=== PATIENT | female | born 1970 | race Caucasian/White ===

== ENCOUNTER → 2018-10-30 12:40 | Outpatient (CLI) | payer OTHER, SELFPAY ==
[2018-07-12 15:22] VITALS: BMI 19.5
[2018-10-30 14:17] LABS: Absolute Lymphocyte Count 1.95 X10^3/ul (0.83-4.51); Absolute Neutrophil Count 3.3 X10^3/uL (2.0-7.7); Basophil# 0.05 X10^3/uL; Basophil% 0.8 % (0-1); Eosinophil# 0.11 X10^3/uL; Eosinophils% 1.8 % (0-5); Hematocrit 42.2 % (37-47); Hemoglobin 13.8 g/dl (12.0-15.0); Lymphocyte # 1.95 X10^3/ul (4.0); Lymphocyte % 32.1 % (19-41); Mean Corp Hgb Conc 32.7 g/gl (32-36); Mean Corpuscular Hgb 33.3 pg (27.0-32.0); Mean Corpuscular Volume 101.7 fL (81-99); Mean Platelet Vol. 9.5 fl (6.2-12.0); Monocyte# 0.61 X10^3/uL; Neutrophil # 3.34 X10^3/uL (2.7-7.7); POSITIVE COUNT NO; POSITIVE DIFFERENTIAL NO; POSITIVE MORPHOLOGY NO; Platelet Count 314 K/mm3 (150-450); RBC Distribution Width CV 12.7 % (11.6-14.6); RBC Distribution Width SD 46.8 fl (35.1-43.9); Red Blood Count 4.15 M/mm3 (4.2-5.4); White Blood Count 6.1 K/mm3 (4.4-11.0)
[2018-10-30 14:39] LABS: Albumin, Serum 3.8 g/dL (3.2-5.0); BUN 7 mg/dL (7-18); BUN/Creat Ratio 12.5 RATIO (10-20); Creatinine, Serum 0.56 mg/dL (0.55-1.02); EST Glomerular Filtration Rate 123 mL/min (>60); Est Glom Filt Rate - Afr Amer 149 mL/min (>60); Glucose 80 mg/dL (74-106); Protein, Total 7.3 g/dL (6.4-8.2)
[2018-10-30 14:40] LABS: ALB/GLOB Ratio 1.1 RATIO (0.9-2.4); AST(SGOT) 20 U/L (15-37); Alanine Aminotransfer ALT/SGPT 24 U/L (13-56); Alkaline Phosphatase 58 U/L (45-117); Anion Gap 9 (5-15); Calcium,Total 8.8 mg/dL (8.5-10.1); Chloride 103 mmol/L (98-107); Globulin 3.5 g/dL (2.2-4.2); Potassium 3.9 mmol/L (3.5-5.1); Sodium Level 138 mmol/L (136-145); Thyroid Stim Hormone (TSH) 1.15 uIU/mL (0.358-3.74)
[2018-11-02 14:07] LABS: Beef 0.21 kU/L (Class 0/I); Corn <0.10 kU/L (Class 0); Egg, Whole <0.10 kU/L (Class 0); Milk (Cow) <0.10 kU/L (Class 0); Peanut <0.10 kU/L (Class 0); Pork <0.10 kU/L (Class 0); Soybean <0.10 kU/L (Class 0); Wheat <0.10 kU/L (Class 0)
[2018-11-04 11:15] LABS: Chocolate <0.10 kU/L (Class 0)
== END ==
PROVIDERS: Family Provider Family Medicine; PCP Family Medicine; Referring Provider Family Medicine; Visit Provider Family Medicine
DX: L23.9 Allergic contact dermatitis, unspecified cause (principal); H69.80 Other specified disorders of Eustachian tube, unspecified ear
CPT/HCPCS: 36415; 80053; 84443; 85025; 86003; 86005

== ENCOUNTER → 2019-02-11 14:50 | Outpatient (CLI) | payer OTHER, MEDICAID, SELFPAY ==
--- NOTE | 2019-02-11 15:00 | CT_ITS ---
STUDY: CT ANKLE WITHOUT CONTRAST LEFT LEFT REASON FOR EXAM: Female, 48 years old. Pain history of fracture This is likely the patient had a nondisplaced distal fibular fracture. RADIATION DOSAGE (If Supplied By Facility): CTDIvol = ( 6.13 ) mGy, DLP = ( 149.12 ) mGycm. Individualized dose optimization techniques were used for this CT.? TECHNIQUE: Thorax images of the left ankle were obtained from the distal tibia and fibula through the calcaneus. Sagittal coronal reformatted images are performed. COMPARISON: Left ankle x-ray July 17, 2017 FINDINGS: Since prior study there is a healed well-corticated appearance of the distal fibula compatible with a history of fracture. There is no visualized evidence of a new or acute fracture. There is no evidence of visualized significant soft tissue edema. The ankle mortise is intact. There is no visualized defect within the ankle mortise. There may be a trace plantar spur. Otherwise the calcaneus appears normal. The joint spaces appear relatively maintained. CT/Extremity Lower without Contra IMPRESSION: Healed fracture of the distal fibula. Small plantar spur. No visualized acute fracture. If there is persistent pain could consider follow-up MRI which may be more specific for subtle soft tissue injuries. Electronically Signed: Sharita Melendrez MD at 19:46 EDT Tel , Service support ,
== END ==
PROVIDERS: Family Provider Family Medicine; PCP Family Medicine; Referring Provider Podiatrist Foot & Ankle Surgery; Visit Provider Podiatrist Foot & Ankle Surgery
DX: M25.572 Pain in left ankle and joints of left foot (principal)
CPT/HCPCS: 73700

== ENCOUNTER → 2019-10-23 11:59 | Outpatient (CLI) | payer OTHER, SELFPAY ==
[2019-03-07 15:33] VITALS: BMI 19.5
[2019-10-23 14:07] LABS: Absolute Lymphocyte Count 1.96 X10^3/uL (0.83-4.51); Absolute Neutrophil Count 5.4 X10^3/uL (2.0-7.7); Basophil# 0.03 X10^3/uL; Basophil% 0.4 % (0-1); Eosinophil# 0.16 X10^3/uL; Eosinophils% 1.9 % (0-5); Hematocrit 38.1 % (37-47); Hemoglobin 12.6 g/dL (12.0-15.0); Lymphocyte # 1.96 X10^3/ul (4.0); Lymphocyte % 23.7 % (19-41); Mean Corp Hgb Conc 33.1 g/dL (32-36); Mean Corpuscular Hgb 33.2 pg (27.0-32.0); Mean Corpuscular Volume 100.3 fL (81-99); Mean Platelet Vol. 9.4 fl (6.2-12.0); Monocyte# 0.66 X10^3/uL; NRBC Flagged by Analyzer 0 % (0-5); Neutrophil # 5.44 X10^3/uL (2.7-7.7); Neutrophil % 65.8 % (47-70); Platelet Count 288 K/mm3 (150-450); RBC Distribution Width CV 12.6 % (11.6-14.6); RBC Distribution Width SD 46.2 fl (35.1-43.9); White Blood Count 8.3 K/mm3 (4.4-11.0)
[2019-10-23 14:22] LABS: ALB/GLOB Ratio 1.3 RATIO (0.9-2.4); AST(SGOT) 13 U/L (15-37); Alanine Aminotransfer ALT/SGPT 22 U/L (13-56); Albumin, Serum 3.8 g/dL (3.2-5.0); Alkaline Phosphatase 48 U/L (45-117); Anion Gap 6 (5-15); BUN 12 mg/dL (7-18); BUN/Creat Ratio 23.8 RATIO (10-20); CRP < 2.90 mg/L (0.0-3.0); Chloride 106 mmol/L (98-107); EST Glomerular Filtration Rate 138 mL/min (>60); Est Glom Filt Rate - Afr Amer 167 mL/min (>60); Glucose 79 mg/dL (74-106); Potassium 3.9 mmol/L (3.5-5.1); Protein, Total 6.8 g/dL (6.4-8.2); Sodium Level 137 mmol/L (136-145)
== END ==
PROVIDERS: PCP Family Medicine; Referring Provider Family Medicine; Visit Provider Family Medicine
DX: R10.31 Right lower quadrant pain (principal)
CPT/HCPCS: 36415; 80053; 85025; 86140

== ENCOUNTER → 2019-11-04 14:32 | Outpatient (CLI) | payer OTHER, SELFPAY ==
[2019-03-07 15:33] VITALS: BMI 19.5
[2019-11-04 18:04] LABS: CRP < 2.90 mg/L (0.0-3.0)
[2019-11-06 16:08] LABS: Endomysial Antibody IgA Negative (Negative)
[2019-11-07 12:02] LABS: Immunoglobulin A 149 mg/dL (87-352); t-Transglutaminase IgA <2 U/mL (0-3)
== END ==
PROVIDERS: PCP Family Medicine; Referring Provider Internal Medicine Gastroenterology; Visit Provider Internal Medicine Gastroenterology
DX: R10.9 Unspecified abdominal pain (principal)
CPT/HCPCS: 36415; 82784; 83516; 86140; 86255

== ENCOUNTER 2020-03-28 05:33 | Emergency (ER) | payer OTHER, SELFPAY ==
[2019-03-07 15:33] VITALS: BMI 19.5
[2020-03-28 05:33] VITALS: BP 119/66; PULSE 79; RESP 16; TEMP 36.3; O2SAT 96; BMI 23.8
--- NOTE | 2020-03-28 05:39 | RAD_ITS ---
HISTORY: FELL DOWN FLIGHT OF STAIRS YESTERDAY. PAIN ALL OVER LEFTHAND EXAMINATION/TECHNIQUE: XR Hand left hand 3 views COMPARISON: None FINDINGS: No fracture, dislocation, or bony abnormality. Joint spaces are preserved. Normal bony alignment. No suspicious soft tissue swelling. RAD/Hand Min 3 Views IMPRESSION: Negative for fracture or acute osseous abnormality. at 0657 Reported and signed by: Daren Broussard MD Electronically Signed: Daren Broussard, at 6:56 EDT Tel , Service support ,
--- NOTE | 2020-03-28 05:40 | ED.VIS.GEN ---
History of Present Illness Chief Complaint: Lower Extremity Injury Narrative: This patient is a 50-year-old female who presents with chief complaint of I am pretty sure I broke my leg. She spelled on the steps yesterday afternoon. She tripped on her shoe. She was walking on the steps and fell down several steps injuring her left knee left elbow and left hand. She did not hit her head or lose consciousness. No chest pain or abdominal pain. No back injury. She denies any medical history or daily medications. She was able to walk initially. Her pain is progressed since that time and she is now unable to bear weight. No paresthesias or weakness. Past Medical History - Allergies and Home Meds Allergies/Adverse Reactions: Allergies iodine Allergy (Verified 06/23/17 14:32) Rash latex Allergy (Verified 06/23/17 14:32) Rash Beef Containing Products Adverse Reaction (Verified 03/28/20 05:35) Hives seafood Allergy (Uncoded 07/12/18 15:25) Unknown Primary Care Physician: Donis Gomez MD [Primary Care Provider] - Past Medical History: None Surgical History: hysterectomy, - - left elbow surgery,falls in the past, 2 mvas in the past with back and head and elbow pain. Smoking Status: Current every day smoker - Family History Maternal Family History: Reports: - - reports health Paternal Family History: Reports: - - migraines. Review of Systems All systems negative except as indicated General: Denies: Fever Eyes: Denies: Visual changes - bilaterally ENT: Denies: Bilateral ear pain Cardiovascular: Denies: Chest pain Respiratory: Denies: Dyspnea Gastrointestinal: Denies: Abdominal pain Musculoskeletal: Reports: Back pain, Extremity Pain Skin: Denies: Rash Neurological: Denies: Headache Hematologic: Denies: Easy bruising Allergy: Denies: Uticaria Physical Exam Vital Signs/Narrative: Vital Signs Temp Pulse Resp BP Pulse Ox 03/28/20 05:33 97.4 F L 79 16 119/66 96 Inital Vital Signs reviewed: Yes General: Well nourished Head: Normocephalic Eyes: EOMI ENT: Moist mucous membranes Neck: Supple Cardiovascular: Regular rate Respiratory: No distress Abdomen: Soft, Nontender, Nondistended Back: Nontender Extremities: - - Patient has ecchymosis of the left elbow hand and knee she does have active full range of motion x4 extremities she has tenderness of the left elbow left hand at the base of the thumb along the thumb as well as diffusely of the left knee had not appreciate any effusion of the left knee extensor mechanism is intact she is neurovascularly intact distally with brisk capillary refill normal sensation and motor function Diagnostic/Tx/Re-eval Impressions Hand X-Ray 03/28/20 05:39 IMPRESSION: Negative for fracture or acute osseous abnormality. at 0657 Reported and signed by: Daren Broussard MD Electronically Signed: Daren Broussard, at 6:56 EDT Tel , Service support , Elbow X-Ray 03/28/20 05:58 IMPRESSION: Old healed distal humeral fracture with intact fixation hardware. No demonstrated acute fracture, dislocation, or destructive osseous lesion. Electronically Signed: Luis Enrique Virgen MD at 6:32 EDT , Service support , Knee X-Ray 03/28/20 05:58 IMPRESSION: Normal exam, left knee. at 0658 Reported and signed by: Daren Broussard MD Electronically Signed: Daren Broussard at 6:57 EDT Tel , Service support , 03/28/20 05:39 Hand Min 3 Views [RAD] Stat 03/28/20 05:58 Elbow min 3 Views [RAD] Stat Knee 4 or More Views [RAD] Stat - Medical Decision Making X-rays were obtained of the left elbow and knee. These are negative for acute fractures. Patient advised on supportive care including rest ice elevation. She was given an Edi wrap and crutches and was discharged home. ED Disposition - Plan for ED Patient: Disposition: Home or Assisted Living Diagnosis: Multiple contusions Instructions: Contusions (Bruises) Referrals: Donis Gomez MD [Primary Care Provider] -
--- NOTE | 2020-03-28 05:58 | RAD_ITS ---
HISTORY: FELL DOWN THE STAIRS, LEFT KNEE PAIN. EXAMINATION/TECHNIQUE: XR left knee 4 views COMPARISON: None FINDINGS: No fracture, dislocation, or bony abnormality. Joint spaces are preserved. Normal bony alignment. No joint effusion or significant soft tissue swelling identified. RAD/Knee 4 or More Views IMPRESSION: Normal exam, left knee. at 0658 Reported and signed by: Daren Broussard MD Electronically Signed: Daren Broussard, at 6:57 EDT Tel , Service support ,
--- NOTE | 2020-03-28 05:58 | RAD_ITS ---
STUDY: X-RAY - LEFT ELBOW REASON FOR EXAM: Female, 50 years old. FELL DOWN STAIRS YESTERDAY. PAIN ALL OVER ELBOW. HX OF SURGERY ON ELBOW IN 1998 PER PATIENT TECHNIQUE: 4 view(s) of the elbow. COMPARISON: None. FINDINGS: There has been previous ORIF of a distal humeral fracture with placement of a medial fixation plate and screws there is also metallic fixation pin within the distal humeral shaft. Hardware is intact with no evidence for loosening and the previous fracture is healed in anatomic alignment. Otherwise normal visualized humerus, radius and ulna. Normal radiocapitellar and ulnotrochlear articulations. The soft tissue structures are unremarkable. RAD/Elbow min 3 Views IMPRESSION: Old healed distal humeral fracture with intact fixation hardware. No demonstrated acute fracture, dislocation, or destructive osseous lesion. Electronically Signed: Luis Enrique Virgen MD at 6:32 EDT , Service support ,
== END 2020-03-28 07:30 | disposition home or self-care (01) ==
PROVIDERS: Emergency Provider Emergency Medicine; PCP Family Medicine
DX: S80.02XA Contusion of left knee, initial encounter (principal); S60.222A Contusion of left hand, initial encounter; S50.02XA Contusion of left elbow, initial encounter; W10.9XXA Fall (on) (from) unspecified stairs and steps, initial encounter; W18.09XA Striking against other object with subsequent fall, initial encounter; Y93.01 Activity, walking, marching and hiking; Y92.9 Unspecified place or not applicable; F17.200 Nicotine dependence, unspecified, uncomplicated
CPT/HCPCS: 73080; 73130; 73564; 99283

== ENCOUNTER 2020-08-16 07:24 | Emergency (ER) | payer MEDICAID, SELFPAY ==
[2020-08-16 07:25] VITALS: BP 124/7; PULSE 72; RESP 18; TEMP 36.1; O2SAT 97; BMI 21.5
--- NOTE | 2020-08-16 07:38 | CT_ITS ---
STUDY: CT BRAIN WITHOUT CONTRAST REASON FOR EXAM: Female, 50 years old. DIZZY, TRIPPED OVER HER DOG, RT SHOULDER PAIN RADIATION DOSAGE (If Supplied By Facility): CTDIvol = ( 44.99 ) mGy, DLP = ( 779.24 ) mGycm TECHNIQUE: Transaxial CT imaging of the brain was performed without administration of intravenous contrast material. Individualized dose optimization techniques were used for this CT. COMPARISON: Comparison is made with prior study 04/18/2016. FINDINGS: Normal soft tissue structures. Normal calvarium. Normal size ventricles and extra-axial spaces for the patient''s age. Normal white matter tracts of the cerebral hemispheres. Normal basal ganglia and thalami. Normal brainstem. Normal cerebellum. There is no intracranial hemorrhage. There are no findings of an acute ischemic infarction. Normal visualized paranasal sinuses. CT/Brain/Head without Contrast IMPRESSION: Normal unenhanced CT scan of the brain. Electronically Signed: Ulisses Mejia, at 9:01 EST , Service support ,
--- NOTE | 2020-08-16 07:38 | EKG12_ITS ---
Test Reason : DYSRHYTHMIA Blood Pressure : / mmHG Vent. Rate : 070 BPM Atrial Rate : 070 BPM P-R Int : 124 ms QRS Dur : 072 ms QT Int : 418 ms P-R-T Axes : 042 062 030 degrees QTc Int : 451 ms Normal sinus rhythm Nonspecific ST abnormality Abnormal ECG Confirmed by BRETT CADE, FABIÁN ([id number]), copy editor KOJO MATA ([id number]) on 08/17/2020 9:23:45 AM Referred By: EVY Confirmed By:FABIÁN WEST MD
--- NOTE | 2020-08-16 07:43 | ED.VIS.GEN ---
History of Present Illness Chief Complaint: Upper Extremity Injury Informant: Patient Narrative: 50-year-old female presenting with dizziness and right shoulder pain. Patient states she is trying to step over a baby gate that she uses to keep her dogs out of certain areas and tripped over the gate catching her shoe and falling on her right shoulder. She states she laid on the ground for a while. As she walked into the ER she was dizzy and had an unstable gait. She appears to be mentating clearly once put into the bed. She admits to drinking a couple of beers but states she has not drunk. She says she has extreme pain in her right shoulder and nausea from the pain. She denies fever, chills, cough. She denies chest pain or shortness of breath. She describes her dizziness as vertiginous in nature. She is unclear if she hit her head or not. - Past Medical History (1) Migraines Status: Chronic (2) Alcohol abuse Status: Chronic (3) TIA (transient ischemic attack) Status: Chronic Past Medical History - Allergies and Home Meds Allergies/Adverse Reactions: Allergies iodine Allergy (Verified 08/16/20 07:25) Rash latex Allergy (Verified 08/16/20 07:25) Rash Beef Containing Products Adverse Reaction (Verified 08/16/20 07:25) Hives seafood Allergy (Uncoded 08/16/20 07:25) Unknown Primary Care Physician: Donis Gomez MD [Primary Care Provider] - Prior records reviewed: Yes Past Medical History: - - Reviewed in problem list Surgical History: hysterectomy, - Lives: With Family Smoking Status: Current every day smoker Alcohol: Heavy Drugs: None - Family History Maternal Family History: Reports: - - reports health Paternal Family History: Reports: - - migraines. Review of Systems General: Denies: Chills, Fever, Sweats Eyes: Denies: Visual changes - bilaterally, Diplopia ENT: Denies: Rhinorrhea, Sore throat Cardiovascular: Denies: Chest pain, Palpitations Respiratory: Denies: Dyspnea, Cough, Dyspnea on exertion Gastrointestinal: Reports: Nausea. Denies: Abdominal pain, Vomiting Genitourinary: Denies: Dysuria, Hematuria Musculoskeletal: Reports: - - Right shoulder pain Skin: Denies: Rash, Abscess Neurological: Reports: - - Dizziness Psych: Denies: Suicidal thoughts, Suicidal ideations Physical Exam Vital Signs/Narrative: Vital Signs Temp Pulse Resp BP Pulse Ox 08/16/20 07:25 97 F L 72 18 124/7 H 97 Inital Vital Signs reviewed: Yes General: Unkempt, No Acute Distress Head: Normocephalic, Atraumatic Eyes: Perrl, EOMI. Negative for: Pale conjunctiva, Scleral icterus ENT: Moist mucous membranes. Negative for: No rhinorrhea, TM's clear Cardiovascular: Regular rate, Regular rhythm Respiratory: No distress, CTA bilaterally Abdomen: Soft, Nontender, Nondistended Back: Nontender, Normal Inspection Extremities: - - Tenderness to palpation over right shoulder at the proximal humerus. No obvious deformity. No ecchymosis. Limited range of motion secondary to pain. Right clavicle is nontender. Skin: Negative for: Normal color, No rash Neurological: Alert, Oriented x3, Cranial nerves II-XII grossly intact Psychological: Normal affect, Normal Mood Diagnostic/Tx/Re-eval Clinical Impression(s) from Imaging Studies Brain CT 08/16/20 07:38 IMPRESSION: Normal unenhanced CT scan of the brain. Electronically Signed: Ulisses Mejia, at 9:01 EST , Service support , Cervical Spine CT 08/16/20 07:49 IMPRESSION: No acute abnormality is seen. Electronically Signed: Ulisses Mejia, at 8:59 EST , Service support , Chest X-Ray 08/16/20 08:30 IMPRESSION: Hyperinflation. The lungs are clear. Nondisplaced fracture through the surgical neck of the proximal right humerus. Electronically Signed: Ulisses Mejia, at 8:46 EST , Service support , Shoulder X-Ray 08/16/20 08:30 IMPRESSION: Nondisplaced fracture through the surgical neck of the proximal right humerus with extension to the greater tuberosity. Widening of the right acromioclavicular joint with findings suggestive of a nondisplaced fracture of the distal right clavicle. Electronically Signed: Ulisses Mejia, at 8:51 EST , Service support , Laboratory Data 08/16/20 08/16/20 08/16/20 07:50 07:50 08:10 WBC 9.6 RBC 4.05 L Hgb 13.7 Hct 40.6 MCV 100.2 H MCH 33.8 H MCHC 33.7 RDW Std Deviation 46.7 H RDW Coeff of Antonia 12.5 Plt Count 310 MPV 8.8 Immature Gran % (Auto) 0.500 Neut % (Auto) 73.8 H Lymph % (Auto) 19.4 [place] % (Auto) 5.5 Eos % (Auto) 0.4 Baso % (Auto) 0.4 Absolute Neuts (auto) 7.1 Absolute Lymphs (auto) 1.87 Nucleated RBC % 0 Sodium Potassium Chloride Carbon Dioxide Anion Gap BUN Creatinine Estim Creat Clear Calc Est GFR (MDRD) Af Amer Est GFR (MDRD) Non-Af BUN/Creatinine Ratio Glucose Calcium Magnesium Total Bilirubin AST ALT Alkaline Phosphatase Troponin I Total Protein Albumin Globulin Albumin/Globulin Ratio Urine Color Yellow Urine Clarity Sl. Cloudy Urine pH 5.0 Ur Specific [place] 1.015 Urine Protein Negative Urine Glucose (UA) Normal Urine Ketones 5 H Urine Occult Blood Negative Urine Nitrite Negative Urine Bilirubin Negative Urine Urobilinogen Normal Ur Leukocyte Esterase Negative Urine RBC 0 SEEN Urine WBC 0 SEEN Ur Squamous Epith Cells 5-10 SEEN Urine Bacteria 0 SEEN Urine Mucus 1+ Urine Opiates Screen NEGATIVE Urine Methadone Screen NEGATIVE Ur Barbiturates Screen NEGATIVE Ur Phencyclidine Scrn NEGATIVE Ur Amphetamines Screen NEGATIVE U Methamphetamin-MDMA NEGATIVE U Benzodiazepines Scrn NEGATIVE Urine Cocaine Screen NEGATIVE U Cannabinoids Screen POSITIVE H Ur Drug Screen Comment Ethyl Alcohol 08/16/20 08/16/20 08:10 08:10 WBC RBC Hgb Hct MCV MCH MCHC RDW Std Deviation RDW Coeff of Antonia Plt Count MPV Immature Gran % (Auto) Neut % (Auto) Lymph % (Auto) [place] % (Auto) Eos % (Auto) Baso % (Auto) Absolute Neuts (auto) Absolute Lymphs (auto) Nucleated RBC % Sodium 140 Potassium 3.7 Chloride 110 H Carbon Dioxide 21.0 Anion Gap 9 BUN 3 L Creatinine 0.60 Estim Creat Clear Calc 97.94 Est GFR (MDRD) Af Amer 136 Est GFR (MDRD) Non-Af 113 BUN/Creatinine Ratio 5.0 L Glucose 102 Calcium 8.8 Magnesium 2.0 Total Bilirubin 0.30 AST 53 H ALT 50 Alkaline Phosphatase 74 Troponin I < 0.015 Total Protein 7.8 Albumin 4.1 Globulin 3.7 Albumin/Globulin Ratio 1.1 Urine Color Urine Clarity Urine pH Ur Specific [place] Urine Protein Urine Glucose (UA) Urine Ketones Urine Occult Blood Urine Nitrite Urine Bilirubin Urine Urobilinogen Ur Leukocyte Esterase Urine RBC Urine WBC Ur Squamous Epith Cells Urine Bacteria Urine Mucus Urine Opiates Screen Urine Methadone Screen Ur Barbiturates Screen Ur Phencyclidine Scrn Ur Amphetamines Screen U Methamphetamin-MDMA U Benzodiazepines Scrn Urine Cocaine Screen U Cannabinoids Screen Ur Drug Screen Comment Ethyl Alcohol 237.0 - Rhythm Strip Rhythm Strip: Sinus Rhythm Rate: 70 - EKG Initial EKG Interpretation: Sinus Rhythm, Non-Specific ST Changes - Medical Decision Making Patient presents with dizziness after having a fall at home and hurting her right shoulder. She was unclear as to whether she hit her head but she stated she laid on the ground for a little while. She is having dizziness which she describes as vertiginous in nature. She admits to only 2 beers but her alcohol was 237. Urinalysis positive for THC. The rest of her lab work was unremarkable. Urinalysis negative. Patient had CT brain and cervical spine which were both negative. Chest x-ray was negative. Right shoulder x-ray shows a nondisplaced proximal humerus fracture. Etiology she did have concern for still clavicular fracture on the right however when I palpate her clavicle she states that it does not hurt. She states she is a patient at [facility] and she will follow up there. I did discuss with her about drinking alcohol. She stated to me that she was not typically an everyday drinker but over the last couple of weeks it has been harder. She states her mother just moved then and has brain cancer. I did discuss with her that I cannot give her pain medication if she is going to be drinking and she says that she can abstain. Patient is placed in a sling. She will call for a sober ride. Currently she is alert and oriented x3 and her dizziness has resolved. Impression: 1. EtOH intoxication 2. Fall 3. Right proximal humerus fracture 4. Dizziness ED Disposition - Plan for ED Patient: Disposition: Home or Assisted Living Instructions: ED INTOXICATION Alcohol, Preventing Falls in the Home, ED Fracture Upper Extremity Prescriptions: Hydrocodone/Acetaminophen [[place] 5-325 Tablet] 1 ea PO Q6H PRN PRN 3 Days #12 tab PRN Reason: pain Prescription Printed Referrals: Donis Gomez MD [Primary Care Provider] -
--- NOTE | 2020-08-16 07:49 | CT_ITS ---
STUDY: CT CERVICAL SPINE WITHOUT CONTRAST REASON FOR EXAM: Female, 50 years old. DIZZY, TRIPPED OVER HER DOG, RT SHOULDER PAIN RADIATION DOSAGE (If Supplied By Facility): CTDIvol = ( 18.98 ) mGy, DLP = ( 351.95 ) mGycm TECHNIQUE: High resolution transaxial imaging was performed without contrast material. Sagittal and coronal images were reconstructed. Individualized dose optimization techniques were used for this CT. COMPARISON: None FINDINGS: Normal craniovertebral junction. Normal anterior atlantoaxial articulation. Normal odontoid process. Normal cervical lordosis. Normal vertebral bodies and posterior osseous elements. C2-3: Normal endplates. Normal disc height and morphology. Normal central canal and intervertebral neuroforamina. C3-4: Normal endplates. Normal disc height and morphology. Normal central canal and intervertebral neuroforamina. C4-5: Normal endplates. Normal disc height and morphology. Normal central canal and intervertebral neuroforamina. C5-6: Normal endplates. Normal disc height and morphology. Normal central canal and intervertebral neuroforamina. C6-7: Normal endplates. Normal disc height and morphology. Normal central canal and intervertebral neuroforamina. C7-T1: Normal endplates. Normal disc height and morphology. Normal central canal and intervertebral neuroforamina. Increased markings at the lung apices with bullous changes suggestive of COPD. CT/Spine Cervical without Contras IMPRESSION: No acute abnormality is seen. Electronically Signed: Uilsses Mejia, at 8:59 EST , Service support ,
[2020-08-16 07:56] LABS: Bacteria 0 SEEN /hpf (None Seen); Red Blood Cells-Urine 0 SEEN /hpf (0-5); White Blood Cells 0 SEEN /hpf (0-5)
[2020-08-16 08:02] LABS: Color, Urine Yellow (Yellow); Glucose, Dipstick Normal (Normal); Ketone-Dipstick 5 mg/dl (Negative); Leukocyte Esterase-Dipstick Negative /ul (Negative); Nitrite-Dipstick Negative (Negative); Occult Blood-Urine Negative /ul (Negative); Protein-Dipstick Negative (Negative); Specific Gravity, Urine 1.015 (1.002-1.030); Urine Bilirubin Dipstick Negative (Negative); Urine Clarity Sl. Cloudy (Clear); Urine Urobilinogen Normal (Normal)
[2020-08-16] MEDS: Morphine 2 MG/ML Syringe IV ×2 (08:06→09:24)
[2020-08-16] MEDS: proMETHazine 25 MG/ML Syringe 6.25 MG IV (08:06)
[2020-08-16 08:08] LABS: Mucous, Urine 1+ /hpf (<or=2+); Squamous Epithelial Cells - UA 5-10 SEEN /hpf (5-10)
[2020-08-16 08:13] LABS: Amphetamine Urine VISTA NEGATIVE (<1000 ng/mL); Barbiturate Urine VISTA NEGATIVE (< 200 ng/mL); Benzodiazepine Urine VISTA NEGATIVE (< 200 ng/mL); Cocaine Urine VISTA NEGATIVE (< 300 ng/mL); Ecstacy Urine VISTA NEGATIVE (< 500 ng/mL); Methadone Urine VISTA NEGATIVE (< 300 ng/mL); PCP Urine VISTA NEGATIVE (< 25 ng/mL); THC Urine VISTA POSITIVE (< 50 ng/mL); Vista UDS pH Range 5
[2020-08-16 08:17] LABS: Absolute Lymphocyte Count 1.87 X10^3/uL (0.83-4.51); Absolute Neutrophil Count 7.1 X10^3/uL (2.0-7.7); Basophil# 0.04 X10^3/uL; Basophil% 0.4 % (0-1); Eosinophil# 0.04 X10^3/uL; Eosinophils% 0.4 % (0-5); Hematocrit 40.6 % (37-47); Hemoglobin 13.7 g/dL (12.0-15.0); Lymphocyte # 1.87 X10^3/ul (4.0); Lymphocyte % 19.4 % (19-41); Mean Corp Hgb Conc 33.7 g/dL (32-36); Mean Corpuscular Hgb 33.8 pg (27.0-32.0); Mean Corpuscular Volume 100.2 fL (81-99); Mean Platelet Vol. 8.8 fl (6.2-12.0); Monocyte# 0.53 X10^3/uL; Monocyte% 5.5 % (0-10); NRBC Flagged by Analyzer 0 % (0-5); Neutrophil # 7.11 X10^3/uL (2.7-7.7); Neutrophil % 73.8 % (47-70); Platelet Count 310 K/mm3 (150-450); RBC Distribution Width CV 12.5 % (11.6-14.6); RBC Distribution Width SD 46.7 fl (35.1-43.9); Red Blood Count 4.05 M/mm3 (4.2-5.4); White Blood Count 9.6 K/mm3 (4.4-11.0)
--- NOTE | 2020-08-16 08:30 | RAD_ITS ---
STUDY: X-RAY - RIGHT SHOULDER REASON FOR EXAM: Female, 50 years old. FALL, LANDED ON RIGHT SHOULDER, PAIN TECHNIQUE: 2 view(s) of the shoulder. COMPARISON: None. FINDINGS: Normal glenohumeral articulation. There is minimal widening of the AC joint suggesting a Type I acromioclavicular joint separation. Normal acromion. Nondisplaced fracture through the surgical neck of the proximal right humerus with extension to the greater tuberosity. Irregularity of the distal portion of the right clavicle suggestive of possible fracture. The soft tissue structures are unremarkable. Normal visualized pulmonary apex. RAD/Shoulder min 2 Views IMPRESSION: Nondisplaced fracture through the surgical neck of the proximal right humerus with extension to the greater tuberosity. Widening of the right acromioclavicular joint with findings suggestive of a nondisplaced fracture of the distal right clavicle. Electronically Signed: Ulisses Mejia, at 8:51 EST , Service support ,
--- NOTE | 2020-08-16 08:30 | RAD_ITS ---
STUDY: X-RAY CHEST REASON FOR EXAM: Female, 50 years old. FALL, LANDED ON RIGHT SHOULDER, PAIN TECHNIQUE: Single PA view of the chest. COMPARISON: None. FINDINGS: Hyperinflation. The lungs are clear. There is no demonstrated pleural abnormality. Normal size heart. Normal mediastinum and [place]. Normal visualized pulmonary arteries. Normal visualized aortic arch and descending thoracic aorta. There are degenerative changes of the visualized thoracic spine. Nondisplaced fracture through the surgical neck of the proximal right humerus. There is no demonstrated abnormality of the visualized soft tissue structures of the upper abdomen. RAD/Chest 1 View (Portable) IMPRESSION: Hyperinflation. The lungs are clear. Nondisplaced fracture through the surgical neck of the proximal right humerus. Electronically Signed: Ulisses Mejia, at 8:46 EST , Service support ,
[2020-08-16 09:07] VITALS: BP 122/72; PULSE 64; RESP 16; O2SAT 96
[2020-08-16 09:10] LABS: ALB/GLOB Ratio 1.1 RATIO (0.9-2.4); AST(SGOT) 53 U/L (15-37); Alanine Aminotransfer ALT/SGPT 50 U/L (13-56); Albumin, Serum 4.1 g/dL (3.2-5.0); Alkaline Phosphatase 74 U/L (45-117); Anion Gap 9 (5-15); BUN 3 mg/dL (7-18); Calcium,Total 8.8 mg/dL (8.5-10.1); Chloride 110 mmol/L (98-107); EST Glomerular Filtration Rate 113 mL/min (>60); Est Glom Filt Rate - Afr Amer 136 mL/min (>60); Estimated Creatinine Clearance 97.94 ml/min; Globulin 3.7 g/dL (2.2-4.2); Glucose 102 mg/dL (74-106); Potassium 3.7 mmol/L (3.5-5.1); Protein, Total 7.8 g/dL (6.4-8.2); Sodium Level 140 mmol/L (136-145)
[2020-08-16 09:56] VITALS: BP 122/74; PULSE 64; RESP 18; O2SAT 97
== END 2020-08-16 09:59 | disposition home or self-care (01) ==
PROVIDERS: Emergency Provider Student in an Organized Health Care Education/Training Program; PCP Family Medicine
DX: S42.214A Unspecified nondisplaced fracture of surgical neck of right humerus, initial encounter for closed fracture (principal); W01.0XXA Fall on same level from slipping, tripping and stumbling without subsequent striking against object, initial encounter; Y93.89 Activity, other specified; Y92.9 Unspecified place or not applicable; Y99.9 Unspecified external cause status; F10.129 Alcohol abuse with intoxication, unspecified; Y90.7 Blood alcohol level of 200-239 mg/100 ml; F17.200 Nicotine dependence, unspecified, uncomplicated; R42 Dizziness and giddiness; Z86.73 Personal history of transient ischemic attack (TIA), and cerebral infarction without residual deficits
CPT/HCPCS: 70450; 71045; 72125; 73030; 80053; 80307; 80320; 81001; 83735; 84484; 85025; 90471; 93005; 96361; 96374; 96375; 96376; 99285; J7030; A4216; G0480

== ENCOUNTER → 2021-04-20 | Outpatient (CLI) | payer MEDICAID, SELFPAY | END | disposition home or self-care (01) | PROVIDERS: PCP Family Medicine; Visit Provider Family Medicine | DX: R05 Cough (principal) | CPT/HCPCS: 87633; 87635; U0005; U0003 ==

== ENCOUNTER → 2021-06-07 | Outpatient (CLI) | payer MEDICAID, SELFPAY ==
[2021-06-07 15:54] LABS: Chlamydia Trachomatis by PCR Negative (Negative); Neisserai gonorrhoeae by PCR Negative (Negative); Probe Check PASS; Sample Adequacy Control PASS; Specimen Processing Control PASS
== END | disposition home or self-care (01) ==
LOC: LABSPEC 10:49
PROVIDERS: PCP Family Medicine; Referring Provider Family Medicine; Visit Provider Registered Nurse
DX: N39.0 Urinary tract infection, site not specified (principal)
CPT/HCPCS: 87086; 87088; 87186; 87491; 87591

== ENCOUNTER 2021-10-04 16:09 | Outpatient (CLI) | payer MEDICAID, SELFPAY | END 2021-10-04 23:59 | disposition short-term general hospital (02) | PROVIDERS: PCP Family Medicine; Referring Provider Family Medicine; Visit Provider Family Medicine | DX: Z20.822 Contact with and (suspected) exposure to COVID-19 (principal) | CPT/HCPCS: 87635; U0003; U0005 ==

== ENCOUNTER → 2022-08-17 | Outpatient (CLI) | payer MEDICAID, SELFPAY | END | disposition home or self-care (01) | LOC: LABSPEC 15:25 | PROVIDERS: PCP Family Medicine; Visit Provider Family Medicine | DX: J02.9 Acute pharyngitis, unspecified (principal) | CPT/HCPCS: 87070 ==

== ENCOUNTER → 2022-11-10 | Outpatient (CLI) | payer OTHER, MEDICAID, SELFPAY ==
--- NOTE | 2022-11-10 13:44 | MRI_ITS ---
STUDY: MRI BRAIN WITH AND WITHOUT CONTRAST REASON FOR EXAM: Female, 52 years old. Worsened migraine headaches TECHNIQUE: Standardized multiplanar fat and water weighted pulse sequences were obtained. IV 10ml dotarem was administered for the contrast portion of the examination. COMPARISON: MRI of brain April 19, 2016 FINDINGS: Normal size of the ventricles and extra-axial spaces for the patient''s age. Small scattered bilateral nonspecific periventricular white matter lesions without mass effect or restricted diffusion.. Normal bilateral basal ganglia. Normal thalami. There is no extra-axial fluid accumulation. Normal flow voids within the major intracranial circulation suggesting patency by spin echo criteria. Normal venous enhancement. There is no enhancing intra-axial or extra-axial abnormality. Normal sella turcica, pituitary gland, infundibular stalk, optic chiasm and hypothalamus. Normal tectal plate and pineal gland. Normal midbrain, lexii and medulla. Chronic ischemic changes within the cerebellar hemispheres bilaterally. Normal basal cisterns. Normal bilateral temporal bones. Normal bilateral internal auditory canals. No demonstrated orbital abnormality, within the constraints of a routine brain study. Normal visualized paranasal sinuses. Normal calvarium and skull base. Normal visualized soft tissue structures. Normal visualized upper cervical spine. There are a few more white matter lesions noted on current study when compared with previous exam. No other significant interval change MRI/Brain W/WO Contrast IMPRESSION: Persistent and very slightly increasing periventricular white matter changes most likely small vessel ischemic change in patient of this age without evidence for acute infarct. However demyelinating disease not entirely excluded and these findings are also seen in patients with old posttraumatic changes, Lyme''s disease or chronic migraines. Bilateral chronic ischemic changes in the cerebellar hemispheres No enhancing lesions following contrast demonstration Electronically Signed: Olvin Lott MD at 16:07 EST ,
[2022-11-10 13:47] LABS: Hematocrit 38.1 % (37-47); Hemoglobin 12.5 g/dL (12.0-15.0); Mean Corp Hgb Conc 32.8 g/dL (32-36); Mean Corpuscular Hgb 33.2 pg (27.0-32.0); Mean Corpuscular Volume 101.1 fL (81-99); Mean Platelet Vol. 8.9 fl (6.2-12.0); Platelet Count 264 K/mm3 (150-450); RBC Distribution Width CV 12.5 % (11.6-14.6); RBC Distribution Width SD 46.5 fl (35.1-43.9); Red Blood Count 3.77 M/mm3 (4.2-5.4); White Blood Count 5.6 K/mm3 (4.4-11.0)
[2022-11-10 14:19] LABS: ALB/GLOB Ratio 1.1 RATIO (0.9-2.4); AST(SGOT) 18 U/L (15-37); Alanine Aminotransfer ALT/SGPT 23 U/L (13-56); Albumin, Serum 3.8 g/dL (3.2-5.0); Alkaline Phosphatase 49 U/L (45-117); Anion Gap 5 (5-15); BUN 8 mg/dL (7-18); Calcium,Total 9.1 mg/dL (8.5-10.1); Chloride 108 mmol/L (98-107); EST Glomerular Filtration Rate 80 mL/min (>60); Est Glom Filt Rate - Afr Amer 97 mL/min (>60); Globulin 3.5 g/dL (2.2-4.2); Glucose 95 mg/dL (74-106); Potassium 3.6 mmol/L (3.5-5.1); Protein, Total 7.3 g/dL (6.4-8.2); Sodium Level 139 mmol/L (136-145)
== END | disposition home or self-care (01) ==
LOC: MRI 13:33
PROVIDERS: PCP Family Medicine; Referring Provider Psychiatry & Neurology Neurology; Visit Provider Psychiatry & Neurology Neurology
DX: G43.109 Migraine with aura, not intractable, without status migrainosus (principal)
CPT/HCPCS: 36415; 70553; 80053; 85027; A9575

== ENCOUNTER 2022-11-21 17:29 | Emergency (ER) | payer OTHER, MEDICAID, SELFPAY ==
[2022-11-21 17:30] VITALS: BP 132/79; PULSE 86; RESP 16; TEMP 35.8; O2SAT 98; BMI 20.6
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
[2022-11-21] MEDS: 0.9% Normal Saline 1,000 ML 150 ML IV (18:16)
[2022-11-21] MEDS: LORazepam 2 MG/ML Syringe 1 MG IV (18:17)
[2022-11-21] MEDS: Haloperidol Lactate 5 MG/ML Vial IM (18:18)
[2022-11-21 18:29] LABS: Absolute Lymphocyte Count 1.76 X10^3/uL (0.83-4.51); Absolute Neutrophil Count 5.5 X10^3/uL (2.0-7.7); Basophil# 0.05 X10^3/uL; Basophil% 0.6 % (0-1); Eosinophil# 0.04 X10^3/uL; Eosinophils% 0.5 % (0-5); Hematocrit 42.4 % (37-47); Hemoglobin 14.2 g/dL (12.0-15.0); Lymphocyte # 1.76 X10^3/ul (0.83-4.51); Lymphocyte % 22.8 % (19-41); Mean Corp Hgb Conc 33.5 g/dL (32-36); Mean Corpuscular Hgb 33.3 pg (27.0-32.0); Mean Corpuscular Volume 99.5 fL (81-99); Mean Platelet Vol. 8.8 fl (6.2-12.0); Monocyte# 0.34 X10^3/uL; Monocyte% 4.4 % (0-10); NRBC Flagged by Analyzer 0 % (0-5); Neutrophil # 5.49 X10^3/uL (2.7-7.7); Neutrophil % 71.2 % (47-70); Platelet Count 370 K/mm3 (150-450); RBC Distribution Width CV 12.4 % (11.6-14.6); RBC Distribution Width SD 45.3 fl (35.1-43.9); Red Blood Count 4.26 M/mm3 (4.2-5.4); White Blood Count 7.7 K/mm3 (4.4-11.0)
[2022-11-21 18:33] VITALS: BP 100/60; PULSE 81; RESP 16; O2SAT 97
[2022-11-21 18:43] LABS: Anion Gap 10 (5-15); BUN 7 mg/dL (7-18); BUN/Creat Ratio 11.3 RATIO (10-20); Calcium,Total 8.8 mg/dL (8.5-10.1); Chloride 109 mmol/L (98-107); Creatinine, Serum 0.62 mg/dL (0.55-1.02); EST Glomerular Filtration Rate 108 mL/min (>60); Est Glom Filt Rate - Afr Amer 130 mL/min (>60); Estimated Creatinine Clearance 101.17 ml/min; Glucose 101 mg/dL (74-106); Potassium 3.6 mmol/L (3.5-5.1); Sodium Level 141 mmol/L (136-145)
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
[2022-11-21 19:01] LABS: Bacteria 0 SEEN /hpf (None Seen); Mucous, Urine 0 SEEN /hpf (<or=2+); Red Blood Cells-Urine 0 SEEN /hpf (0-5); White Blood Cells 0 SEEN /hpf (0-5)
[2022-11-21 19:04] LABS: Color, Urine Yellow (Yellow); Glucose, Dipstick Normal (Normal); Ketone-Dipstick Negative (Negative); Leukocyte Esterase-Dipstick 25 /ul (Negative); Nitrite-Dipstick Negative (Negative); Occult Blood-Urine 250 /ul (Negative); Protein-Dipstick 15 mg/dl (Negative); Urine Bilirubin Dipstick Negative (Negative); Urine Clarity Clear (Clear); Urine Urobilinogen Normal (Normal)
[2022-11-21 19:10] LABS: Squamous Epithelial Cells - UA 0-5 SEEN /hpf (5-10)
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
[2022-11-21 19:59] LABS: Amphetamine Urine VISTA NEGATIVE (<1000 ng/mL); Barbiturate Urine VISTA NEGATIVE (< 200 ng/mL); Benzodiazepine Urine VISTA NEGATIVE (< 200 ng/mL); Cocaine Urine VISTA NEGATIVE (< 300 ng/mL); Ecstacy Urine VISTA NEGATIVE (< 500 ng/mL); Methadone Urine VISTA NEGATIVE (< 300 ng/mL); PCP Urine VISTA NEGATIVE (< 25 ng/mL); THC Urine VISTA POSITIVE (< 50 ng/mL); Vista UDS pH Range 6
--- NOTE | 2022-11-21 20:26 | ED.RN ---
mother arrives at bedside. Dr Sharp and dr Ma speaking with mother.
[2022-11-21 21:03] VITALS: BP 94/61; PULSE 82; RESP 16; O2SAT 100
[2022-11-21 23:16] VITALS: RESP 16
[2022-11-22 03:28] VITALS: PULSE 74; RESP 15; O2SAT 99
== END 2022-11-22 03:29 | disposition home or self-care (01) ==
PROVIDERS: Emergency Medicine; Emergency Provider Emergency Medicine; PCP Family Medicine; Visit Provider Emergency Medicine
DX: F10.129 Alcohol abuse with intoxication, unspecified (principal); S31.41XA Laceration without foreign body of vagina and vulva, initial encounter; S09.90XA Unspecified injury of head, initial encounter; F12.90 Cannabis use, unspecified, uncomplicated; F17.210 Nicotine dependence, cigarettes, uncomplicated; Y04.8XXA Assault by other bodily force, initial encounter
CPT/HCPCS: 70450; 80048; 80307; 81001; 82077; 85025; 96361; 96372; 96374; 99285; J7030; A4216

== ENCOUNTER 2023-01-05 23:27 | Emergency (ER) | payer OTHER, MEDICAID, SELFPAY ==
[2023-01-05 23:28] VITALS: BP 113/89; PULSE 85; RESP 20; TEMP 36.6; O2SAT 100; BMI 20.6
--- NOTE | 2023-01-05 23:48 | CT_ITS ---
INDICATION: head injury EXAMINATION: CT Head or Brain W/O Contrast Injection TECHNIQUE: Multiple axial images were obtained of the head without intravenous contrast. A radiation dose optimization technique was used for this scan. IV Contrast dosage and agent: None. COMPARISON: Head CT from 11/21/2022 FINDINGS: BRAIN PARENCHYMA: No intra- or extra-axial hemorrhage. No evidence of acute major territorial infarct. Mild encephalomalacia again noted at inferior right frontal lobe. No intracranial mass or mass effect. Chronic bilateral cerebral white matter lucencies are present. Chronic cerebral involutional changes. CSF SPACES: Prominent cerebral sulci secondary to involutional changes. No hydrocephalus. Basal cisterns are patent. CALVARIUM, SKULL BASE, PARANASAL SINUSES AND MASTOID AIR CELLS: Calvarium is intact. No acute findings within imaged paranasal sinuses. Mastoid air cells are well-pneumatized. ORBITS: No acute findings. CT/Brain/Head without Contrast IMPRESSION: Stable exam with cerebral atrophy and chronic ischemic changes. No evidence of acute intracranial abnormality. Electronically Signed: Néstor Mar MD at 0:26 EDT ,
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
[2023-01-06 00:06] LABS: Bedside Glucose 124 mg/dL (74-106)
[2023-01-06 00:27] VITALS: RESP 16; O2SAT 93
[2023-01-06 01:27] VITALS: RESP 14; O2SAT 93
[2023-01-06 02:00] VITALS: BP 124/98; PULSE 74; RESP 18; O2SAT 94
[2023-01-06 03:00] VITALS: O2SAT 97
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
--- NOTE | 2023-01-06 05:43 | ED.RN ---
patients aunt came and picked her up. [place] police and nursing staff watched patient get into car
== END 2023-01-06 05:49 | disposition home or self-care (01) ==
PROVIDERS: Emergency Provider Emergency Medicine; PCP Family Medicine; Visit Provider Emergency Medicine
DX: F10.129 Alcohol abuse with intoxication, unspecified (principal); F17.210 Nicotine dependence, cigarettes, uncomplicated; F12.90 Cannabis use, unspecified, uncomplicated
CPT/HCPCS: 70450; 72125; 82077; 82962; 99285; A4216

== ENCOUNTER → 2023-03-14 | Outpatient (CLI) | payer OTHER, MEDICAID, SELFPAY ==
[2023-03-14 11:31] LABS: Vitamin B12 240 pg/mL (211-911)
[2023-03-14 11:41] LABS: Cholesterol 216 mg/dL (200); High Density Lipoprotein 52 mg/dL; Thyroid Stim Hormone (TSH) 1.65 uIU/mL (0.358-3.74); Triglycerides 102 mg/dL; Very Low Density Lipoprotein 20 mg/dL (5-40)
[2023-03-17 17:08] LABS: Free Kappa Light Chains 17.8 mg/L (3.3-19.4); Free Lambda Light Chains 12.5 mg/L (5.7-26.3)
== END | disposition home or self-care (01) ==
LOC: MTLAB 08:35
PROVIDERS: PCP Family Medicine; Referring Provider Psychiatry & Neurology Neurology; Visit Provider Psychiatry & Neurology Neurology
DX: G62.9 Polyneuropathy, unspecified (principal); Z86.73 Personal history of transient ischemic attack (TIA), and cerebral infarction without residual deficits
CPT/HCPCS: 36415; 80061; 82607; 82746; 83883; 84425; 84443

== ENCOUNTER → 2023-06-04 | Outpatient (CLI) | payer OTHER, MEDICAID, SELFPAY ==
--- NOTE | 2023-06-04 14:09 | NEURO ---
NCS and/or EMG Patient Report Ordering Doctor: Man Meek DATE OF SERVICE: 06/04/23 Findings: Nerve conduction studies were performed in the right and left upper extremities. The right median motor study recording the abductor pollicis brevis showed a normal amplitude, normal distal latency and normal conduction velocity. The right ulnar motor study recording the abductor digiti minimi showed a normal amplitude, normal distal latency and normal conduction velocity. No conduction block or focal slowing was present across the elbow. The right median sensory response recording digit two showed a normal amplitude, latency and conduction velocity. The right ulnar sensory response recording digit five showed a normal amplitude, latency and conduction velocity. The right radial sensory response recording over the extensor snuff box showed a normal amplitude, latency and conduction velocity. The left median motor study recording the abductor pollicis brevis showed a normal amplitude, normal distal latency and normal conduction velocity. The left ulnar motor study recording the abductor digiti minimi showed a normal amplitude, normal distal latency and normal conduction velocity. No conduction block or focal slowing was present across the elbow. The left median sensory response recording digit two showed a normal amplitude, latency and conduction velocity. The left ulnar sensory response recording digit five showed a normal amplitude, latency and conduction velocity. The left radial sensory response recording over the extensor snuff box showed a normal amplitude, latency and conduction velocity. Right median-ulnar lumbrical / interosseous motor latencies showed a normal median latency compared to the ulnar. Left median-ulnar lumbrical / interosseous motor latencies showed a normal median latency compared to the ulnar. Needle EMG of the right upper extremity and cervical paraspinal muscles was performed. No denervation was seen in any muscle. All motor unit morphology, activation and recruitment patterns were normal. Needle EMG of the left upper extremity and cervical paraspinal muscles was performed. No denervation was seen in any muscle. All motor unit morphology, activation and recruitment patterns were normal. Impression: This is a normal study. There is no electrophysiologic evidence of median neuropathy across the wrist on either side. In addition, there is no electrophysiologic evidence of cervical radiculopathy, brachial plexopathy or other entrapment neuropathy in either upper extremity. Nirmal Huston D.O. Multi Select Codes Neurology Neurology Interp Codes: 43900-61 Musc test done w/n test comp (interp) (Qty:2) and 37424-71 Nrv cnd test 13/> studies (interp)
== END | disposition home or self-care (01) ==
PROVIDERS: PCP Family Medicine; Visit Provider Psychiatry & Neurology Neurology
DX: G56.03 Carpal tunnel syndrome, bilateral upper limbs (principal)
CPT/HCPCS: 95886; 95913

== ENCOUNTER → 2023-06-12 | Outpatient (CLI) | payer OTHER, MEDICAID, SELFPAY ==
--- NOTE | 2023-06-12 10:50 | NEURO_ITS ---
NCS and/or EMG Patient Report Ordering Doctor: Man Meek DATE OF SERVICE: 06/12/23 Clinical Summary: This is a 53 year old female presenting with complaints of back pain, sciatica- like symptoms, and numbness/tingling in her feet. This EMG/NCS was performed to evaluate for right/left lumbosacral radiculopathy and peripheral neuropathy. Nerve Conductions Summary: The right sural SNAP distal latency was prolonged. The left peroneal-EDB motor conduction velocity was reduced at the fibular head. All other performed nerve conductions were within normal ranges. Needle Examination Summary: Complex repetitive discharges were seen in the left tensor fascia sandra. There was a higher proportion of motor unit action potentials with increased amplitude, increased duration, polyphasia, and reduced recruitment in the left tibialis anterior and peroneus longus muscles. Impression: There is electrodiagnostic evidence of the following - 1) Chronic, left L5 radiculopathy There is no electrodiagnostic evidence of a large-fiber perpheral neuropathy or right lumbosacral radiculopathy. Multi Select Codes Neurology Neurology Interp Codes: 40852-95 Musc test done w/n test comp (interp) (2) and 85918-85 Nrv cndj test 7-8 studies (interp)
== END | disposition home or self-care (01) ==
LOC: PSN 08:49
PROVIDERS: PCP Family Medicine; Referring Provider Psychiatry & Neurology Neurology; Visit Provider Psychiatry & Neurology Neurology
DX: G62.9 Polyneuropathy, unspecified (principal); M54.50 Low back pain, unspecified
CPT/HCPCS: 95886; 95910

== ENCOUNTER 2024-05-14 07:55 | Emergency (ER) | payer MEDICAID, SELFPAY ==
[2024-05-14 07:56] VITALS: BP 127/82; PULSE 82; RESP 16; TEMP 36.1; O2SAT 97; BMI 22.8
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
--- NOTE | 2024-05-14 08:11 | RAD_ITS ---
STUDY: X-RAY - RIGHT WRIST REASON FOR EXAM: Female, 54 years old. Wrist pain following a fall. TECHNIQUE: 3 view(s) of the wrist were obtained. COMPARISON: None. FINDINGS: There is a nondisplaced transverse fracture through the distal radial metaphysis. Minimal dorsal facing. Normal radiocarpal articulation. Normal distal radioulnar articulation. Normal carpal bones. Normal carpal articulations. Normal carpometacarpal articulation of the thumb. Normal second through fifth carpometacarpal articulations. Normal visualized metacarpal bones. Soft tissue swelling. RAD/Wrist min 3 Views IMPRESSION: Nondisplaced transverse fracture of the distal radial metaphysis with minimal dorsal facing. Soft tissue swelling. Electronically Signed: Ulisses Mejia MD at 8:28 EDT ,
[2024-05-14] MEDS: Ibuprofen 200 MG Tablet 400 MG PO (08:51)
[2024-05-14] MEDS: Acetaminophen 325 MG Tablet 650 MG PO (08:52)
[2024-05-14] MEDS: oxyCODONE 5 MG Tablet PO (08:52)
[2024-05-14 08:55] VITALS: BP 122/84; PULSE 81; RESP 16; TEMP 36.6; O2SAT 99
== END 2024-05-14 08:59 | disposition home or self-care (01) ==
PROVIDERS: Emergency Provider Emergency Medicine; PCP Family Medicine; Visit Provider Emergency Medicine
DX: S52.591A Other fractures of lower end of right radius, initial encounter for closed fracture (principal); W18.30XA Fall on same level, unspecified, initial encounter; F17.210 Nicotine dependence, cigarettes, uncomplicated
CPT/HCPCS: 29126; 73110; 99282

== ENCOUNTER → 2024-05-30 | Outpatient (CLI) | payer MEDICAID, SELFPAY ==
--- NOTE | 2024-05-30 10:30 | RAD_ITS ---
INDICATION: Fracture EXAMINATION/TECHNIQUE: X-RAY - RIGHT XR Wrist Min 3 Views 3 VIEWS COMPARISON: 05/14/2024 FINDINGS: SOFT TISSUES: No soft tissue swelling or gas. No radiopaque foreign body. BONES/JOINTS: There is a healing nondisplaced fracture involving the distal radial metaphysis. Callus formation is noted. Persistent minimal dorsal angulation. There has been no detrimental interval change. Fracture plane is still evident. Remaining bony elements have normal appearance. Carpal rows are intact. RAD/Wrist min 3 Views IMPRESSION: 1. Healing distal radial fracture with mild dorsal angulation. No displacement. Fracture plane still evident. Callus formation is noted. 2. No detrimental interval change, no other bony or joint space abnormality. Electronically Signed: Chucky Clements MD at 17:20 EDT ,
== END | disposition home or self-care (01) ==
LOC: RAD 10:25
PROVIDERS: PCP Family Medicine; Referring Provider Surgery Plastic and Reconstructive Surgery; Visit Provider Surgery Plastic and Reconstructive Surgery
DX: S52.91XA Unspecified fracture of right forearm, initial encounter for closed fracture (principal); X58.XXXA Exposure to other specified factors, initial encounter
CPT/HCPCS: 73110

== ENCOUNTER → 2024-06-13 | Outpatient (CLI) | payer MEDICAID, SELFPAY ==
--- NOTE | 2024-06-13 09:56 | RAD_ITS ---
INDICATION: Right distal radius fracture EXAMINATION/TECHNIQUE: X-RAY - RIGHT XR Wrist Min 3 Views 3 VIEWS COMPARISON: 05/30/2024 FINDINGS: SOFT TISSUES: No soft tissue swelling or gas. No radiopaque foreign body. BONES/JOINTS: There is a healing distal radial metaphyseal fracture. Fracture plane still evident, minimal impaction and minimal angulation without change. There is been no detrimental interval change. Carpal rows are intact. RAD/Wrist min 3 Views IMPRESSION: 1. Healing distal radial fracture with minimal angulation. No displacement. Fracture plane is still evident. There is callus formation. 2. No detrimental interval change. Electronically Signed: Chucky Clements MD at 19:15 EDT ,
== END | disposition home or self-care (01) ==
LOC: RAD 09:56
PROVIDERS: PCP Family Medicine; Referring Provider Surgery Plastic and Reconstructive Surgery; Visit Provider Surgery Plastic and Reconstructive Surgery
DX: S52.501A Unspecified fracture of the lower end of right radius, initial encounter for closed fracture (principal)
CPT/HCPCS: 73110

== ENCOUNTER 2024-07-22 11:54 | Outpatient (RCR) | payer MEDICAID, SELFPAY ==
--- NOTE | 2024-07-23 07:46 | HP.OTEVAL ---
Patient's Visit Information Visit Information Visit Information: BRYN HERNANDEZ is a 54 year old F, referred to Occupational Therapy by Dr. Pravin Gonzalez MD, with a diagnosis of right distal radius fx. Date of Evaluation: 07/22/24 Occupational Therapist: Jhoana Harden, CARYL/Peggy, CHT Subjective Subjective: This 54 year old female was seen for OT eval with dx of a right distal radius fx. Pt states she fell on 05/13/24. States she went to ER the next day. X-rays did show right wrist fx. pt casted. pt states her wrist is taking its time healing. request protective custom orthosis for pt to allow further healing and initiation of ROM and strength recovery. pt is right handed and reports she is limited with all ADLs and IADLs at this time. Pain right wrist: Current Pain Intensity: 3 Pain Intensity Range: 2 and 4 ROM Forearm: supination right 45 left WNL Wrist: right wrist 20/15 left WNL ROM Comments: pt demo with full composite fist at this time with both right and left Strength Strength Comments: will test later date Quick DASH-Disab of Arm,Shoulder& Hand Quick DASH Score: 77.5000 Goals Goal:ROM equal to unaffected hand: Yes Goal:Dna Sequencing Associate/Pinch strength at least 75% of unaffected hand: Yes Goal:No pain with affected hand use: Yes Goal:Full use of affected hand in daily activities including work: Yes Other Goal: orthosis use: pt will demo IND doffing donning of orthosis by end of 1st session. pt will demo understanding of of use and skin care precautions by d.c Rehabilitation General Assessment: pt arrives 9 weeks and 6 days from DOI - due to complications of slower healing pt demo need for continued support and protection . pt currently limited with use of her right dominate hand and would benefit from skilled OT services. Pt demo need for skilled OT services 2x week for 6 weeks to return pt to her PLOF. Today therapist luz. custom orthosis ed. pt on use and care- ed. pt on skin care precautions- pt demo understanding and agree to POC. Rehabilitation Potential: Good Anticipated Interventions Anticipated Interventions: A/AAROM/PROM, Strengthening, Triggerpoint Release, Modalities, Orthoses, Joint Protection/Energy Conservation, Ergonomic Education, Education re Diagnosis and Home Program Visit Plan Frequency: 2x /Week Duration: 6 Weeks General Plan: custom orthosis ed on initiation of ROM and transition to light hot header operator strengthening TEXT: Thank you for the opportunity to evaluate your patient. For Medicare and Medicare HMO plans, please review the plan of care and approve it. It will need to be FAXED BACK to us at [phone] for Medicare purposes. Please let me know if there are questions or concerns regarding this plan of care. Physician Signature: Date:
--- NOTE | 2024-11-26 13:19 | HP.OT.NRP ---
Patient Information Patient Information: BRYN HERNANDEZ was seen in my office for initial evaluation on 07/22/24. The following Plan of Care was established for this patient: POC Established Initial Frequency: 2x /Week Initial Duration: 6 Weeks Anticipated Interventions Anticipated Interventions: A/AAROM/PROM, Strengthening, Triggerpoint Release, Modalities, Orthoses, Joint Protection/Energy Conservation, Ergonomic Education, Education re Diagnosis and Home Program Last Seen Last Seen: This patient was last seen in our office 07/22/24. Pertinent comments regarding their Occupational therapy will appear below: pt was seen for OT eval only- pt cancelled her apts due to inactive insurance coverage. Pt d/c at this time. At this point I will be discontinuing this patient from occupational therapy. I would be happy to see this patient again in the future if found appropriate by the physician. Thank you! Jhoana Harden, OTR/L, CHT
== END 2024-07-22 19:00 | disposition home or self-care (01) ==
LOC: OT 11:54
PROVIDERS: PCP Family Medicine; Referring Provider Surgery Plastic and Reconstructive Surgery; Visit Provider Surgery Plastic and Reconstructive Surgery
DX: S52.90XD Unspecified fracture of unspecified forearm, subsequent encounter for closed fracture with routine healing (principal)
CPT/HCPCS: 97165; 97760

== ENCOUNTER → 2024-10-09 | Outpatient (CLI) | payer MEDICAID, SELFPAY ==
--- NOTE | 2024-10-09 14:00 | LES_PTH ---
PATIENT: BRYN HERNANDEZ LOC: [facility] U#:[id number] AGE/SX: 54/F ROOM: RE10/09/[address]: Dr. Pravin Gonzalez MD : 1970 BED: DIS: 10/09/2024 SPEC #: [id number] RECD: 10/09/24 14:27 STATUS: DEVIN LINDA #: [id number] PATRICIO: 10/09/24 14:[address]: Pravin Gonzalez DEPT: SURGICAL PATHOLOGY RECD BY: Aric Menendez ENTERED: 10/10/24 07:20 SP TYPE: Lesion OTHR DR: Dr. Donis Gomez MD Tissues: Skin of face, NOS Procedures: Surgery Specimen Level IV HEADER OPERATION: Biopsy facial lesion PRE-OP DIAGNOSIS: Facial lesion TISSUE SUBMITTED: Right cheek lesion MICROSCOPIC DIAGNOSIS Right cheek lesion, biopsy: Mild solar elastosis. Mild chronic folliculitis. Negative for malignancy. See comment. [email or web address] 10/13/2024 COMMENT Clinical correlation and appropriate follow up are necessary. MICROSCOPIC DESCRIPTION Slides are reviewed. GROSS DESCRIPTION Received in fixative is one container labeled with the patient's name and designated Right cheek lesion biopsy. The specimen consists of a piece of calabrese-white skin measuring 0.2 x 0.1 x 0.1cm. The entire specimen is submitted in one cassette. 10/10/2024 TC:5 CPT:97961
== END | disposition home or self-care (01) ==
PROVIDERS: PCP Family Medicine; Referring Provider Surgery Plastic and Reconstructive Surgery; Visit Provider Surgery Plastic and Reconstructive Surgery
DX: L57.8 Other skin changes due to chronic exposure to nonionizing radiation (principal); L73.9 Follicular disorder, unspecified
CPT/HCPCS: 88305

== ENCOUNTER 2024-10-24 11:17 | Emergency (ER) | payer MEDICAID, SELFPAY ==
[2024-10-24] VITALS (16 sets, daily range): BP systolic 110–157; BP diastolic 65–89; PULSE 68–87; RESP 11–18; TEMP 36.6–36.8; O2SAT 96–99; BMI 24.4
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
--- NOTE | 2024-10-24 12:18 | EKG12_ITS ---
Test Reason : CP Blood Pressure : */* mmHG Vent. Rate : 70 BPM Atrial Rate : 70 BPM P-R Int : 136 ms QRS Dur : 80 ms QT Int : 412 ms P-R-T Axes : 50 52 40 degrees QTcB Int : 444 ms Normal sinus rhythm with sinus arrhythmia Normal ECG Confirmed by BRETT CADE, FABIÁN ([id number]), publications editor FUENTES FREITAS ([id number]) on 10/27/2024 7:27:07 AM Referred By: Confirmed By: FABIÁN WEST MD
--- NOTE | 2024-10-24 12:33 | RAD_ITS ---
EXAM: XR Chest, 2 Views CLINICAL INDICATION: TECHNIQUE: Frontal and lateral views of the chest. COMPARISON: No relevant prior studies available. FINDINGS: LUNGS AND PLEURAL SPACES: Unremarkable. No consolidation. No pneumothorax. HEART: Unremarkable. No cardiomegaly. MEDIASTINUM: Unremarkable. Normal mediastinal contour. BONES/JOINTS: Unremarkable. No acute fracture. RAD/Chest PA and Lateral IMPRESSION: No acute cardiopulmonary process. Reading [facility]
[2024-10-24 12:35] LABS: Absolute Neutrophil Count 5.4 X10^3/uL (2.0-7.7); Basophil# 0.04 X10^3/uL; Basophil% 0.5 % (0-1); Eosinophil# 0.01 X10^3/uL; Eosinophils% 0.1 % (0-5); Hematocrit 43.2 % (37-47); Hemoglobin 14.4 g/dL (12.0-15.0); Lymphocyte % 27.9 % (19-41); Mean Corp Hgb Conc 33.3 g/dL (32-36); Mean Corpuscular Hgb 32.5 pg (27.0-32.0); Mean Corpuscular Volume 97.5 fL (81-99); Mean Platelet Vol. 9.8 fl (6.2-12.0); Monocyte# 0.43 X10^3/uL; Monocyte% 5.2 % (0-10); NRBC Flagged by Analyzer 0 % (0-5); Neutrophil # 5.44 X10^3/uL (2.7-7.7); Neutrophil % 66.1 % (47-70); Platelet Count 371 K/mm3 (150-450); RBC Distribution Width CV 12.6 % (11.6-14.6); RBC Distribution Width SD 45.2 fl (35.1-43.9); Red Blood Count 4.43 M/mm3 (4.2-5.4); White Blood Count 8.2 K/mm3 (4.4-11.0)
[2024-10-24 12:51] LABS: Anion Gap 11 (5-15); BUN 10 mg/dL (7-18); BUN/Creat Ratio 13.1 RATIO (10-20); Calcium,Total 9.4 mg/dL (8.5-10.1); Chloride 104 mmol/L (98-107); Creatinine, Serum 0.76 mg/dL (0.55-1.02); EST Glomerular Filtration Rate 84 mL/min (>60); Est Glom Filt Rate - Afr Amer 102 mL/min (>60); Estimated Creatinine Clearance 70.81 ml/min; Glucose 113 mg/dL (74-106); Potassium 3.7 mmol/L (3.5-5.1); Sodium Level 136 mmol/L (136-145); Troponin-I HS (w/2H Reflex) 5 pg/mL (3.0-54.0)
[2024-10-24] MEDS: Aspirin 81 MG TAB.CHEW 324 MG PO (12:51)
[2024-10-24 14:27] LABS: Reflex Troponin-HS? (from REC) Y
[2024-10-24 15:00] LABS: Troponin-I HS 5 pg/mL (3.0-54.0)
== END 2024-10-24 15:25 | disposition home or self-care (01) ==
PROVIDERS: Emergency Provider Emergency Medicine; PCP Family Medicine; Visit Provider Emergency Medicine
DX: R07.9 Chest pain, unspecified (principal); R03.0 Elevated blood-pressure reading, without diagnosis of hypertension; F12.90 Cannabis use, unspecified, uncomplicated
CPT/HCPCS: 71046; 80048; 84484; 85025; 93005; 99284; A4216

== ENCOUNTER → 2024-11-18 | Outpatient (CLI) | payer MEDICAID, SELFPAY ==
--- NOTE | 2024-11-18 07:04 | BD_ITS ---
PROCEDURE: DEXA BONE DENSITY STUDY REASON FOR EXAM: F, age 54 y/o . TECHNIQUE: DEXA scan of the lumbar spine and both hips. COMPARISON: None. FINDINGS: T-SCORES Lumbar spine: -0.5 (BMD 0.992) Left hip: -1.5 (BMD 0.757) Right hip: -1.6 (BMD 0.751) Right hip FRAX* Results: 10 Year Probability of Fracture: Hip Fracture(1): 11% Major Osteoporotic Fracture(2): 27% Left hip FRAX* Results: 10 Year Probability of Fracture: Hip Fracture(1): 6.5% Major Osteoporotic Fracture(2): 22% *FRAX is a trademark of the [employer]'s [place] for Metabolic Bone Disease, World Health Organization (WHO) Collaborating [place]. 1-The 10-year probability of fracture may be lower than reported if the patient has received treatment. 2-Major Osteoporotic Fracture: Clinical Spine, Forearm, Hip or Shoulder. The T-scores are also available for review on the [facility] PACS or by accessing the [facility] electronic medical record. BD/Dexa Bone Density Study IMPRESSION: Osteopenia of the lumbar spine and both hips. Reading Location: [facility]
--- NOTE | 2024-11-18 07:30 | BI_ITS ---
PROCEDURE: SCRN MAMM (CAD)W/BRISA BILAT REASON FOR EXAM: F, Age 54 y/o, presents for annual screening mammogram. There is no family history of breast cancer. TECHNIQUE: Bilateral screening digital breast tomosynthesis with 2D and 3D images. Computer aided detection. COMPARISON: Baseline examination, no priors. FINDINGS: The breasts are extremely dense which lowers the sensitivity of mammography. The mammogram demonstrates that the patient has dense breasts. Supplemental screening with whole breast ultrasound or MRI may be considered for further evaluation. No suspicious masses, areas of developing architectural distortion, or suspicious calcifications. BI/SCRN MAMM (CAD)W/BRISA BILAT IMPRESSION: There is no mammographic evidence of malignancy in either breast. BI-RADS 1: NEGATIVE. RECOMMEND ANNUAL MAMMOGRAPHIC SCREENING. Follow-up code: Routine Follow-up The patient will be notified of the results by letter. Reading Location: [id number]
== END | disposition home or self-care (01) ==
PROVIDERS: PCP Family Medicine; Referring Provider Family Medicine; Visit Provider Family Medicine
DX: M85.89 Other specified disorders of bone density and structure, multiple sites (principal); S62.101A Fracture of unspecified carpal bone, right wrist, initial encounter for closed fracture; X58.XXXA Exposure to other specified factors, initial encounter; Z12.31 Encounter for screening mammogram for malignant neoplasm of breast
CPT/HCPCS: 77063; 77067; 77080

== ENCOUNTER → 2024-12-01 | Outpatient (CLI) | payer MEDICAID, SELFPAY ==
[2024-12-01 12:59] LABS: Hematocrit 44.4 % (37-47); Hemoglobin 14.4 g/dL (12.0-15.0); Mean Corp Hgb Conc 32.4 g/dL (32-36); Mean Corpuscular Hgb 32.8 pg (27.0-32.0); Mean Corpuscular Volume 101.1 fL (81-99); Mean Platelet Vol. 9.4 fl (6.2-12.0); Platelet Count 340 K/mm3 (150-450); RBC Distribution Width CV 12.9 % (11.6-14.6); RBC Distribution Width SD 48.2 fl (35.1-43.9); Red Blood Count 4.39 M/mm3 (4.2-5.4); White Blood Count 6.2 K/mm3 (4.4-11.0)
[2024-12-01 13:03] LABS: Erythrocyte Sedimentation Rate 9 mm/hr (0-30)
[2024-12-01 14:13] LABS: PTHIN 34 pg/mL (11-61)
[2024-12-01 14:14] LABS: ALB/GLOB Ratio 1.6 RATIO (0.9-2.4); AST(SGOT) 23 U/L (<=31); Alanine Aminotransfer ALT/SGPT 16 U/L (<=34); Albumin, Serum 4.4 g/dL (3.5-5.0); Alkaline Phosphatase 106 U/L (35-104); Anion Gap 13 (5-15); BUN 10 mg/dL (4-19); BUN/Creat Ratio 15.1 RATIO (10-20); Calcium,Total 9.5 mg/dL (7.6-11.0); Carbon Dioxide 20.8 mmol/L (21.0-32.0); Chloride 105 mmol/L (98-108); Creatinine, Serum 0.69 mg/dL (0.70-1.20); EST Glomerular Filtration Rate 104 (>60); Globulin 2.8 g/dL (2.2-4.2); Glucose 98 mg/dL (70-99); Potassium 4.2 mmol/L (3.3-5.1); Protein, Total 7.1 g/dL (5.9-8.4); Sodium Level 139 mmol/L (133-145); Total Bilirubin 0.37 mg/dL (0.00-1.30)
[2024-12-01 14:42] LABS: CRP < 3.00 mg/L (0.0-3.0); Free T3 2.9 pg/mL (2.18-3.98); Lipase 28 U/L (13-75); Vitamin B12 265 pg/mL (180-914); Vitamin D,25 Hydroxy 11.4 ng/mL (30-100)
[2024-12-01 19:27] LABS: FOLATES,SERUM (FOLIC ACID) 3.57 ng/mL (4.60-34.80)
[2024-12-02 09:08] LABS: ANTINUCLEAR ANTIBODIES DIRECT Negative (Negative)
[2024-12-03 16:09] LABS: Deamidated Gliadin IgA 4 units (0-19); Deamidated Gliadin IgG 1 units (0-19); Endomysial Antibody IgA Negative (Negative); Immunoglobulin A 146 mg/dL (87-352); t-Transglutaminase IgA <2 U/mL (0-3)
== END | disposition home or self-care (01) ==
LOC: MTLAB 09:30
PROVIDERS: PCP Family Medicine; Referring Provider Family Medicine; Visit Provider Family Medicine
DX: M81.0 Age-related osteoporosis without current pathological fracture (principal); F41.9 Anxiety disorder, unspecified; R19.7 Diarrhea, unspecified
CPT/HCPCS: 80053; 82306; 82607; 82746; 82784; 83516; 83690; 83970; 84439; 84443; 84481; 85027; 85652; 86038; 86140; 86255

== ENCOUNTER → 2025-03-24 | Outpatient (CLI) | payer MEDICAID, SELFPAY | END | disposition home or self-care (01) | LOC: LABSPEC 13:29 | PROVIDERS: PCP Family Medicine; Visit Provider Physician Assistant | DX: M54.50 Low back pain, unspecified (principal) | CPT/HCPCS: 87086; 87088 ==

== ENCOUNTER → 2025-03-27 | Outpatient (CLI) | payer MEDICAID, SELFPAY ==
[2025-03-27 15:19] LABS: Hematocrit 41.4 % (37-47); Hemoglobin 13.5 g/dL (12.0-15.0); Immature Granulocytes Count 0.020 X10^3/uL (0.0-0.0); Mean Corp Hgb Conc 32.6 g/dL (32-36); Mean Corpuscular Volume 101.0 fL (81-99); Mean Platelet Vol. 10.4 fl (6.2-12.0); NRBC Flagged by Analyzer 0 % (0-5); Platelet Count 296 K/mm3 (150-450); RBC Distribution Width CV 12.9 % (11.6-14.6); RBC Distribution Width SD 48.0 fl (35.1-43.9); Red Blood Count 4.10 M/mm3 (4.2-5.4); White Blood Count 6.8 K/mm3 (4.4-11.0)
[2025-03-27 16:04] LABS: AST(SGOT) 24 U/L (<=31); Alanine Aminotransfer ALT/SGPT 16 U/L (<=34); Albumin, Serum 4.3 g/dL (3.5-5.0); Alkaline Phosphatase 68 U/L (35-104); Anion Gap 10 (5-15); BUN 7 mg/dL (4-19); BUN/Creat Ratio 8.8 RATIO (10-20); Calcium,Total 9.6 mg/dL (7.6-11.0); Carbon Dioxide 22.7 mmol/L (21.0-32.0); Chloride 106 mmol/L (98-108); Globulin 2.5 g/dL (2.2-4.2); Glucose 99 mg/dL (70-99); Potassium 3.7 mmol/L (3.3-5.1)
== END | disposition home or self-care (01) ==
LOC: MFPLAB 12:21
PROVIDERS: PCP Family Medicine
DX: M54.50 Low back pain, unspecified (principal); G89.29 Other chronic pain
CPT/HCPCS: 36415; 80053; 85025